=== PATIENT | male | born 1955 | race Caucasian/White ===

== ENCOUNTER 2024-12-20 14:44 | Emergency (ER) | payer OTHER, SELFPAY ==
[2024-12-20 14:45] VITALS: BP 159/91
--- NOTE | 2024-12-20 16:50 | ED.GENMED ---
History of Present Illness
General
Chief Complaint: Musculo-Skeletal Complaint
Source: patient
Exam Limitations: none
Time Seen by Provider: 12/20/24 15:44
Nursing documentation reviewed up to this point in time: agreed with
History of Present Illness
History of Present Illness:
69-year-old male presents to the ER for evaluation of muscle spasm. Patient reports he was doing an exercise at the [employer] 6 days ago and then several days after felt muscle spasms in his left thigh. He describes a quadricep extension exercise
with weights. he reports intermittently since then he has felt muscle spasms in his quadricep and hamstring. He denies presently. He is able to walk without discomfort. He denies any swelling. He reports muscle spasms are intermittent. He has
not iced or used heat he has not taken anything for discomfort. He denies any swelling.
Past History
Past History
ED Past Medical History: HTN
Social History
Tobacco: Non-smoker
Employment: Employed
Review of Systems
Review of Systems
Allergies reviewed?: Yes
All Other Systems: ROS reviewed and negative except as documented in HPI and ROS
Constitutional: Reports no symptoms
Musculoskeletal: Reports other (left thigh pain )
Skin: Reports no symptoms
Psychiatric: Reports no symptoms
Phy Exam
General Physical Exam
General Presentation: no apparent distress
General age: appears stated age
General Skin: warm and dry
General Habitus: normal
General Mental: alert
General Hydration: appears well hydrated
Neurological Exam
Neurological Exam: alert and oriented x3
Musculoskeletal Exam
Musculoskeletal Exam: other (normal left thigh exam , no erythema, no swelling able to bear weight able to flex and extend at the knee without discomfort nontender to palpation + strong distal pulses )
Skin Exam
Skin Exam: normal color and warm/dry
Psychiatric Exam
Psychiatric Exam: normal mood/affect
Course
Vital Signs
Initial and Last Documented VS:
Initial Vital Signs
Temp Pulse Resp BP Pulse Ox
98.3 F 86 16 159/91 98
12/20/24 14:45 12/20/24 14:45 12/20/24 14:45 12/20/24 14:45 12/20/24 14:45
Last Documented Vital Signs
Temp Pulse Resp BP Pulse Ox
98.3 F 86 16 159/91 98
12/20/24 14:45 12/20/24 14:45 12/20/24 14:45 12/20/24 14:45 12/20/24 14:45
MDM/Problems Addressed
Differential Diagnosis Includes:
Not limited to muscle sprain strain muscle spasms
MDM/Problems Addressed:
Symptoms are consistent with mild muscle sprain /strain/ spasm. Patient has normal strength. he is presently asymptomatic. He is able to extend and flex his knee without discomfort. No obvious tenderness to palpation no swelling. He is
ambulatory with steady gait. Will DC with low-dose ibuprofen. Patient reports he is no longer on Eliquis. He reports he does not take any blood thinner. Will DC with ice alternate with with close outpatient follow with family doctor.
*Critical Care Note
Total Time (30-74mins, 75-104mins- exclusive of procedures): Not Applicable
ED Attending Note
-
Portions of this chart may have been created with voice recognition software.� Occasional wrong word or��sound alike� substitutions may have occurred due to the inherent limitations of voice recognition software.
Discharge Plan
Departure
Patient Disposition: Home (Routine Discharge)
Date of Disposition: 12/20/24
Time of Disposition: 16:54
Patient with high blood pressure during this ER visit?: Yes
Condition: Fair
Covid-19: Not Applicable
Discharge Problem:
Muscle pain
Instructions: Muscle, joint, and bone pain - Discharge instructions
Prescriptions:
No Action
Albuterol Sulfate Hfa
1 - 2 puff inhalation Q4HPRN PRN (Reason: cough, SOB)
atorvastatin 40 MG tablet
40 mg PO DAILY
metoprolol succinate [Toprol XL] 200 MG tablet extended release 24 hr
200 mg PO DAILY
amlodipine 10 MG tablet
10 mg PO DAILY
lisinopril 40 MG tablet
40 mg PO DAILY
metformin 500 MG tablet
500 mg PO BID@0800,1700 Qty: 60 1RF
benzonatate 100 MG capsule
200 mg PO TID Qty: 20 0RF
dextromethorphan-guaifenesin 10 ML syrup
10 ml PO Q4HPRN PRN (Reason: Cough) Qty: 30 0RF
dexamethasone 2 MG tablet
6 mg PO DAILY Qty: 15 0RF
apixaban [Eliquis] 5 MG tablet
10 mg PO BID Qty: 12 0RF
Rx Instructions:
Take this till 02/13/22 morning.
apixaban [Eliquis] 5 MG tablet
5 mg PO BID Qty: 60 2RF
Rx Instructions:
Start taking this from 02/13/22 Evening.
Referrals:
Mehdi Green MD [Family Provider] -
Activity Restrictions/Additional Instructions:
As discussed symptoms are consistent with muscle sprain /strain and spasm. You may alternate between ice and heat. You may try icing since you have not iced it yet for the next 24 hours 20 minutes at a time several times a day followed by
warm moist heat.
You may take [id number] Tylenol if needed. Follow-up close with your family doctor return if any worsening of symptoms.
Interventions
Interventions:
*Risk Screen - Suicide Last Done: 12/20/24 14:45
*General Assessment Last Done: 12/20/24 14:45
*Neglect/Abuse Screening Last Done: 12/20/24 14:45
Discharge Date and Time
Print Language: KOREAN
[2024-12-20] MEDS: MOTRIN 400 MG PO (17:10)
== END 2024-12-20 17:21 | disposition home or self-care (01) ==
LOC: EMR 14:44
PROVIDERS: EMERGENCY PHYSICIAN Emergency Medicine; FAMILY PHYSICIAN Family Medicine
DX: M79.10 Myalgia, unspecified site (principal); I10 Essential (primary) hypertension
CPT/HCPCS: 99282